=== PATIENT | male | born 1940 | race Caucasian/White ===

== ENCOUNTER 2017-02-21 14:46 | Emergency (ER) | payer OTHER ==
[~2017-02-21] VITALS: Ht 167.6 cm; Wt 64.0 kg
[2017-02-21 14:49] VITALS: Ht 167.6 cm; Wt 64.0 kg
[2017-02-21] MEDS ORDERED: SODIUM CHLORIDE 0.9% 1L BAG IV* STA (15:03)
[2017-02-21 15:30] LABS: ADD SCAN DIFF NO
[2017-02-21 15:31] LABS: BASOPHILS % 0.3 % (0.0-2.0); EOSINOPHILS # 0.3 10^3/ul (0.0-0.5); EOSINOPHILS % 4.2 % (0.0-7.0); HEMATOCRIT 40.3 % (42.0-52.0); LYMPHOCYTES # 1.5 10^3/ul (0.8-2.9); LYMPHOCYTES % 22.8 % (15.0-51.0); MEAN CORPUSCULAR HEMOGLOBIN 29.3 pg (29.0-33.0); MEAN CORPUSCULAR HGB CONC 32.3 g/dl (32.0-37.0); MEAN CORPUSCULAR VOLUME 90.8 fl (82.0-101.0); MEAN PLATELET VOLUME 9.5 fl (7.4-10.4); MONOCYTE # 1.1 10^3/ul (0.3-0.9); MONOCYTES % 15.9 % (0.0-11.0); NEUTROPHIL # 3.7 10^3/ul (1.6-7.5); NEUTROPHILS % 56.3 % (39.0-77.0); PLATELET COUNT 258 10^3/UL (140-415); RED BLOOD COUNT 4.44 10^6/ul (4.70-6.10); RED CELL DISTRIBUTION WIDTH 13.7 % (11.5-14.5); WHITE BLOOD COUNT 6.6 10^3/ul (4.8-10.8)
[2017-02-21 15:38] LABS: ADD UMIC YES; URINE BILIRUBIN (Dip) 2+ (NEGATIVE); URINE BLOOD (Dip) NEGATIVE (NEGATIVE); URINE COLOR AMBER (YELLOW); URINE KETONES (Dip) 15 (NEGATIVE); URINE LEUKOCYTE ESTERASE (Dip) 2+ (NEGATIVE); URINE NITRITE (Dip) POSITIVE (NEGATIVE); URINE TOTAL PROTEIN (Dip) 4+ (NEGATIVE); URINE UROBILINOGEN (Dip) >8.0 E.U./dL (0.1-1.0)
[2017-02-21 15:46] LABS: ALBUMIN 4.5 g/dl (3.3-4.9); CHLORIDE 97 mmol/L (97-110); INR 0.95; PROTIME 12.7 Sec (12.2-14.2)
[2017-02-21 15:47] LABS: POTASSIUM 3.9 mmol/L (3.5-5.1); SODIUM 141 mmol/L (135-144)
--- NOTE | 2017-02-21 15:48 | RADRPT ---
PROCEDURE: XR Chest. CLINICAL INDICATION: Sepsis TECHNIQUE: Chest PA COMPARISON: None available FINDINGS: The mediastinal structures are unremarkable. There is calcification of the thoracic aorta (consiste nt with atherosclerosis). The heart is normal in size and configuration. The pulmonary vascularity is normal. There are normal lung volumes. There is bibasilar subsegmental atelectasis / interstit ial disease. No consolidation is identified. The pleural spaces are unremarkable. There are senes cent changes of the axial skeleton. IMPRESSION: Calcification of the thoracic aorta (consistent with atherosclerosis). Bibasilar subsegmental atelectasis / interstitial disease. No consolidation identified RPTAT: [facility] .Malik Sullivan MD, Date Time Electronically viewed and signed by .Malik Sullivan MD, on 02/21/2017 15:48 .B/
[2017-02-21 15:49] LABS: ALBUMIN/GLOBULIN RATIO 1.21; ALKALINE PHOSPHATASE 118 IU/L (42-121); ANION GAP 19 (8-16); ASPARTATE AMINO TRANSFERASE 27 IU/L (15-46); BILIRUBIN,INDIRECT 0.8 mg/dl (0-1.1); BILIRUBIN,TOTAL 0.8 mg/dl (0.2-1.3); BLOOD UREA NITROGEN 28 mg/dl (7-20); CARBON DIOXIDE 29 mmol/L (21-31); CREATININE 1.31 mg/dl (0.61-1.24); TOTAL PROTEIN 8.2 g/dl (6.1-8.1)
[2017-02-21 15:50] LABS: ALANINE AMINOTRANSFERASE 29 IU/L (13-69); CALCIUM 10.1 mg/dl (8.4-10.2); GLUCOSE 154 mg/dl (70-220)
[2017-02-21] MEDS ORDERED: CEFTRIAXONE 1 GM/50 ML (PMX) 50 ML IVPB ONE (16:00)
[2017-02-21 16:01] LABS: BACTERIA,URINE MODERATE; ICTOTEST POSITIVE (NEGATIVE); SQUAMOUS EPITHELIAL CELL,UR MODERATE; URINE RBCS NONE SEEN /HPF (0)
[2017-02-21 16:02] LABS: TROPONIN-I < 0.012 ng/ml (0.00-0.12)
--- NOTE | 2017-02-21 16:23 | ERD ---
ER Documentation Chief Complaint Date/Time DATE: 02/21/17 TIME: 16:19 Chief Complaint painful urination x 5 days, pt on abx but symptoms worsening HPI This is a 76-year-old male who presents to the emergency room for evaluation of painful urination. This patient was diagnosed with a urinary tract infection and has been on ciprofloxacin for the past 5 days. The patient states that his symptoms have not improved, and is feeling mildly nauseous. Patient states that he does have pain localized pain to the lower portion of the abdomen. He denies any fever chills or back pain and came to the emergency room for evaluation of his symptoms. ROS All systems reviewed and are negative except as per history of present illness. Allergies Allergies: Coded Allergies: No Known Allergy (Unverified , 02/21/17) PMhx/Soc Hx Alcohol Use: No Hx Substance Use: No Hx Tobacco Use: No Smoking Status: Never smoker Physical Exam Vitals Vital Signs Date Time Temp Pulse Resp B/P Pulse Ox O2 Delivery O2 Flow Rate FiO2 02/21/17 14:49 97.6 99 18 136/76 93 Physical Exam Const: No acute distress Head: Atraumatic Eyes: Normal Conjunctiva ENT: Normal External Ears, Nose and Mouth. Neck: Full range of motion..~ No meningismus. Resp: Clear to auscultation bilaterally Cardio: Regular rate and rhythm, no murmurs Abd: Soft, non tender, non distended. Normal bowel sounds Skin: No petechiae or rashes Back: No midline or flank tenderness Ext: No cyanosis, or edema Neur: Awake and alert Psych: Normal Mood and Affect Result Diagram: 02/21/17 1506 02/21/17 1506 Results 24 hrs Laboratory Tests Test 02/21/17 15:00 02/21/17 15:06 Urine Color BOYD Urine Clarity SLIGHTLY CLOUDY Urine pH 6.5 Urine Specific [place] 1.020 Urine Ketones 15 Urine Nitrite POSITIVE Urine Bilirubin 2+ Urine Ictotest POSITIVE Urine Urobilinogen >8.0 E.U./dL Urine Leukocyte Esterase 2+ Urine Microscopic RBC NONE SEEN/HPF Urine Microscopic WBC >200/HPF Urine Squamous Epithelial Cells MODERATE Urine Bacteria MODERATE Urine Hemoglobin NEGATIVE Urine Glucose 0.25%% Urine Total Protein 4+ White Blood Count 6.610^3/ul Red Blood Count 4.4410^6/ul Hemoglobin 13.0g/dl Hematocrit 40.3% Mean Corpuscular Volume 90.8fl Mean Corpuscular Hemoglobin 29.3pg Mean Corpuscular Hemoglobin Concent 32.3g/dl Red Cell Distribution Width 13.7% Platelet Count 04814^3/UL Mean Platelet Volume 9.5fl Neutrophils % 56.3% Lymphocytes % 22.8% Monocytes % 15.9% Eosinophils % 4.2% Basophils % 0.3% Nucleated Red Blood Cells % 0.0/100WBC Neutrophils # 3.710^3/ul Lymphocytes # 1.510^3/ul Monocytes # 1.110^3/ul Eosinophils # 0.310^3/ul Basophils # 0.010^3/ul Nucleated Red Blood Cells # 0.010^3/ul Prothrombin Time 12.7Sec Prothrombin Time Ratio 1.0 INR International Normalized Ratio 0.95 Activated Partial Thromboplast Time 32.0Sec Sodium Level 141mmol/L Potassium Level 3.9mmol/L Chloride Level 97mmol/L Carbon Dioxide Level 29mmol/L Anion Gap 19 Blood Urea Nitrogen 28mg/dl Creatinine 1.31mg/dl Glucose Level 154mg/dl Lactic Acid Level 1.7mmol/L Calcium Level 10.1mg/dl Total Bilirubin 0.8mg/dl Direct Bilirubin 0.00mg/dl Indirect Bilirubin 0.8mg/dl Aspartate Amino Transf (AST/SGOT) 27IU/L Alanine Aminotransferase (ALT/SGPT) 29IU/L Alkaline Phosphatase 118IU/L Troponin I < 0.012ng/ml Total Protein 8.2g/dl Albumin 4.5g/dl Globulin 3.70g/dl Albumin/Globulin Ratio 1.21 Current Medications Medications (Trade) Dose Ordered Sig/Josse Route PRN Reason Start Time Stop Time Status Last Admin Dose Admin Sodium Chloride 1980 ml 1,980 ml BOLUS OVER 2 HOURS STAT IV* 02/21/17 15:03 02/21/17 15:05 DC 02/21/17 15:25 Ceftriaxone Sodium (Rocephin) 50 ml @ 100 mls/hr ONCE ONCE IVPB 02/21/17 16:00 02/21/17 16:29 02/21/17 16:07 Procedures/MDM EKG: Rate/Rhythm: [Normal Sinus Rhythm] QRS, ST, T-waves: [No changes consistent w/ acute ischemia] Impression: [No evidence of ischemia or arrhythmia] Chest X-ray 1V Interpreted by me: Soft Tissue: No acute abnormalities Bones: No acute abnormalities Mediastinum/Cardiac Silhouette/Lungs: [No acute abnormalities] This 76-year-old male presents to the emergency room for evaluation of painful urination for the past 5 days. The patient has been on ciprofloxacin however his symptoms have not improved. This patient was afebrile on my initial examination. A septic workup was started including a urinalysis and urine culture. Urinalysis does reveal nitrite positive urinary tract infection. This patient has no signs of leukocytosis or systemic infection at this time. The patient was given 30 cc/kg of IV normal saline. Patient was started on Rocephin in the emergency room. He is not vomiting and tolerating p.o. fluids. This patient has no signs of sepsis at this time, and he likely has ciprofloxacin resistant bacteria. The patient will be discharged at this time with a prescription for Macrobid 100 mg twice daily to take over the course of the next 2 weeks. I advised him that if he were to develop a fever, inability to tolerate p.o., or severe back pain needs to return to the emergency room for reevaluation. Urine cultures are pending at this time and we will follow-up with urine cultures Departure Diagnosis: Primary Impression: Acute cystitis Additional Impressions: Failure of outpatient treatment Normocytic anemia Renal insufficiency Condition: Stable MCKENNA RODRIGUEZ DO February 21, 2017 16:23
[2017-02-21] MEDS ORDERED: NITR-58 PO (16:24)
[2017-02-21] MEDS ORDERED: NITROFURANTOIN (SR) 100 MG CAP PO ONE (16:30)
[2017-02-21] MEDS ORDERED: FLUT16SP17 NASAL (16:30)
[2017-02-21] MEDS ORDERED: IPRA12.93 INHALATION (16:31)
[2017-02-21] MEDS ORDERED: GABA-526 PO (16:31)
[2017-02-21] MEDS ORDERED: OMEP20CA16 PO (16:32)
[2017-02-21] MEDS ORDERED: OXYC15TA PO (16:32)
[2017-02-21] MEDS ORDERED: ATOR80TA75 PO (16:37)
[2017-02-21] MEDS ORDERED: CILO50TA PO (16:38)
[2017-02-21] MEDS ORDERED: PHEN-538 PO (16:39)
[2017-02-21 16:56] VITALS: BP 136/70; PULSE 77; RESP 18
== END 2017-02-21 16:57 | disposition home or self-care (01) ==
LOC: E/R 14:46
DX: N30.00 Acute cystitis without hematuria (principal); D64.9 Anemia, unspecified; N28.9 Disorder of kidney and ureter, unspecified; R40.2142 Coma scale, eyes open, spontaneous, at arrival to emergency department; R40.2252 Coma scale, best verbal response, oriented, at arrival to emergency department; R40.2362 Coma scale, best motor response, obeys commands, at arrival to emergency department; R10.30 Lower abdominal pain, unspecified; R11.0 Nausea; Z16.23 Resistance to quinolones and fluoroquinolones
CPT/HCPCS: 36415; 71010; 80053; 81001; 83605; 84484; 85025; 85610; 85730; 87040; 87086; 93005; 96374; 99285; J0696; J7030; 81003